=== PATIENT | male | born 1975 | race Caucasian/White ===

== ENCOUNTER 2019-07-06 20:49 | Emergency (ER) | payer MEDICAID ==
[~2019-07-06] VITALS: Ht 175.3 cm; Wt 81.6 kg
[2019-07-06 21:04] VITALS: BP 162/99
== END 2019-07-07 01:27 | disposition left against medical advice (07) ==
LOC: ER 20:49
DX: M25.511 Pain in right shoulder (principal); Z53.21 Procedure and treatment not carried out due to patient leaving prior to being seen by health care provider
CPT/HCPCS: 73030

== ENCOUNTER 2019-07-07 17:02 | Emergency (ER) | payer MEDICAID ==
[~2019-07-07] VITALS: Ht 175.3 cm; Wt 81.6 kg
[2019-07-07 17:32] VITALS: BP 177/110
== END 2019-07-07 18:44 | disposition home or self-care (01) ==
LOC: ER 17:02
DX: S43.004A Unspecified dislocation of right shoulder joint, initial encounter (principal); S46.911A Strain of unspecified muscle, fascia and tendon at shoulder and upper arm level, right arm, initial encounter; X58.XXXA Exposure to other specified factors, initial encounter; Y93.89 Activity, other specified; Y92.89 Other specified places as the place of occurrence of the external cause; Y99.8 Other external cause status
CPT/HCPCS: 23650; 73020